=== PATIENT | male | born 1985 | race Caucasian/White ===

== ENCOUNTER → 2019-06-11 | Outpatient (REF) | payer BC | LOC: M SFHCPLAZ 17:08 | PROVIDERS: ATTEND Dermatology | DX: D22.9 Melanocytic nevi, unspecified (principal) ==

== ENCOUNTER → 2019-07-21 | Outpatient (REF) | payer BC | LOC: M SFHCPLAZ 10:17 | PROVIDERS: ATTEND Dermatology | DX: L98.9 Disorder of the skin and subcutaneous tissue, unspecified (principal) ==